=== PATIENT | female | born 1985 | race Caucasian/White ===

== ENCOUNTER 2017-12-08 08:56 | Inpatient (IN) | payer OTHER ==
--- NOTE | 2017-12-08 10:16 | HP ---
General Information - General Information Maternal Age: 32 Grav: 3 Para: 0 SAB: 2 IEA: 0 Estimated Due Date: 12/09/17 Gestational Age in Weeks and Days: 39 Weeks and 6 Days Maternal Blood Type and Rh: A Positive - Results this Serology/RPR Result: Non-Reactive Rubella Result: Immune HBsAg Result: Negative HIV Result: Negative GBS Culture Result: Negative Past Medical History Delivery History: See Records Delivery History Comment: Hx of a spontaneous misscarriage at 8wks (blighted ovum) and a spontaneous misscarriage at 5wks EGA. 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 Scoliosis Endometriosis Pertinent Past Surgical History: See Records Past Surgical History Comment: 2002 Oral surgery Laparoscopy and hysteroscopy Tonsils/Adenoids 1992 Pertinent Family History: See Records Family History Comment: Chron's disease CVD Osteoporosis Lung cancer Unknown clotting disorder - Antepartal Records Antepartal Records: Reviewed, Complicated by: - Patient on anticoagulation Review of Systems Constitutional: Uncomfortable CV Complaint: No Respiratory: Shortness of Breath: No Gastrointestinal: No Nausea/Vomiting, Normal Bowel Movement Genitourinary: No Dysuria, No Bleeding, No Leaking Fluid Musculoskeletal: No Complaint Neurological: No Headache Movement: Normal Exam Allergies/Adverse Reactions: Allergies No Known Allergies Allergy (Verified 12/08/17 09:45) Vital Signs 12/08/17 09:05 Temperature 98.7 F Pulse Rate 92 Respiratory 18 Rate Blood Pressure 104/68 (mmHg) O2 Sat by Pulse 100 Oximetry - Measurements Height: 5 ft 4 in Weight: 127 lb Weight in lbs: 127 Body Mass Index (BMI): 21.8 Pre- Weight: 108 lb Weight Gained This : 19 lbs and 0 ozs - Exam Abdomen: No Upper Quadrant Pain Breast: Breast Exam Deferred CVA: No CVA Tenderness Extremities: No Edema Heart: Normal Rhythm/Heart Sounds HEENT: No Significant Findings Lungs: Clear Bilaterally Rectal: Rectal Exam Deferred Reflexes: DTR 2+ Thyroid: No Thyromegaly - Cervical Exam %cm dilated, 90% effaced, +1 station Cephalic - Abdominal Exam Abdomen Exam: Non-Tender Abdomen Exam Comment: Fundal height less than dates. - Membranes Membrane Status: Intact - Ultrasound/Biophysical Profile Ultrasound Status: Not Done Biophysical Profile: Normal Reactive NST EFM Findings - External Monitor Findings Baseline Heart Rate: 140 External Monitor Findings: Accelerations Present Contractions: Regular, Strong, 45-90 Seconds Assessment/Plan - Reason for Visit Reason for Visit: 39 6/7 weeks in Labor - Plan Plan: Observe, Active Labor - Date/Time of Admission Date of Admission: 12/09/17 Time of Admission: 10:00
[2017-12-08 11:25] LABS: ABS Basophils 0 10^3/ul (0-0.2); ABS Eosinophils 0 10^3/ul (0-0.6); ABS Monocytes 0.6 10^3/ul (0-0.8); ABS Neutrophils 8.6 10^3/ul (1.5-7.7); ABS Nucleated RBC 0 10^3/ul; Eosinophil % 0.2 % (0-6); Hematocrit 37 % (35-47); Hemoglobin 12.9 g/dl (12.0-16.0); Lymphocyte % 17.9 % (25-47); Mean Corpuscular HGB Conc 35 g/dl (31-36); Mean Corpuscular Hemoglobin 34 pg (27-31); Mean Corpuscular Volume 97 fL (80-97); Nucleated Red Blood Cells % 0; Platelet Count 142 10^3/ul (150-450); Red Blood Count 3.78 10^6/ul (4.0-5.4); Red Cell Distribution Width 13 % (10.5-15); White Blood Count 11.3 10^3/ul (3.5-10.8)
[2017-12-09] MEDS ORDERED: Carboprost Tromethamine* 250 MCG INJ ONE (03:25)
[2017-12-09] MEDS ORDERED: Glycerin ADULT SUPP PR PRN (03:45)
[2017-12-09] MEDS ORDERED: Acetaminophen TAB* 325 MG PO PRN (03:45)
[2017-12-09] MEDS ORDERED: Misoprostol TAB* 200 MCG PR ONE (03:45)
[2017-12-09] MEDS ORDERED: OXYTOCIN* 10 UNITS/ML 1 ML VIAL IM ONE (03:45)
[2017-12-09] MEDS ORDERED: Carboprost Tromethamine* 250 MCG INJ IM ONE (03:45)
[2017-12-09] MEDS ORDERED: Ammonia Inhalant* 1 EA AMP ONE (08:12)
[2017-12-09] MEDS ORDERED: Simethicone TAB* 80 MG TAB.CHEW PO SCH (08:30)
[2017-12-09] MEDS: Dibucaine 1% 28.35 GM TUBE PR PRN (10:11)
[2017-12-09] MEDS: Witch Hazel PAD* JAR TOPICAL PRN (10:11)
[2017-12-09] MEDS: Docusate CAP* 100 MG PO SCH ×3 (10:11→21:00)
[2017-12-09 12:03] LABS: Hematocrit 30 % (35-47); Hemoglobin 10.3 g/dl (12.0-16.0); Mean Corpuscular HGB Conc 35 g/dl (31-36); Mean Corpuscular Hemoglobin 34 pg (27-31); Mean Corpuscular Volume 98 fL (80-97); Mean Platelet Volume 9.3 um3 (7.4-10.4); Platelet Count 149 10^3/ul (150-450); Red Blood Count 3.06 10^6/ul (4.0-5.4); Red Cell Distribution Width 13 % (10.5-15); White Blood Count 18.6 10^3/ul (3.5-10.8)
[2017-12-09] MEDS: Enoxaparin(*) 40 MG/0.4 ML SYR SUBCUT SCH (15:22)
[2017-12-09] MEDS: Ibuprofen TAB* 600 MG PO PRN (19:01)
[2017-12-10] MEDS: Ibuprofen TAB* 600 MG PO PRN ×3 (05:45→20:01)
[2017-12-10 06:45] LABS: ABS Basophils 0.1 10^3/ul (0-0.2); ABS Eosinophils 0 10^3/ul (0-0.6); ABS Lymphocytes 3.4 10^3/ul (1.0-4.8); ABS Monocytes 0.7 10^3/ul (0-0.8); ABS Neutrophils 9.5 10^3/ul (1.5-7.7); ABS Nucleated RBC 0 10^3/ul; Eosinophil % 0.3 % (0-6); Hematocrit 25 % (35-47); Hemoglobin 8.7 g/dl (12.0-16.0); Lymphocyte % 24.7 % (25-47); Mean Corpuscular HGB Conc 34 g/dl (31-36); Mean Corpuscular Hemoglobin 34 pg (27-31); Mean Corpuscular Volume 98 fL (80-97); Mean Platelet Volume 9.8 um3 (7.4-10.4); Nucleated Red Blood Cells % 0; Platelet Count 138 10^3/ul (150-450); Red Blood Count 2.57 10^6/ul (4.0-5.4); Red Cell Distribution Width 13 % (10.5-15); White Blood Count 13.7 10^3/ul (3.5-10.8)
[2017-12-10] MEDS: Ferrous Gluconate TAB* 324 MG TAB PO SCH ×2 (08:59→20:01)
[2017-12-10] MEDS: Docusate CAP* 100 MG PO SCH ×3 (08:59→20:01)
[2017-12-10] MEDS: Enoxaparin(*) 40 MG/0.4 ML SYR SUBCUT SCH (15:35)
[2017-12-11] MEDS: Witch Hazel PAD* JAR TOPICAL PRN (04:37)
[2017-12-11] MEDS: Dibucaine 1% 28.35 GM TUBE PR PRN (04:37)
[2017-12-11] MEDS: Ibuprofen TAB* 600 MG PO PRN ×2 (04:37→10:23)
[2017-12-11 06:28] LABS: EGFR Non-African American 163.6 (>60)
[2017-12-11 07:55] VITALS: BP 101/57
[2017-12-11] MEDS: Docusate CAP* 100 MG PO SCH ×2 (08:10→13:43)
[2017-12-11] MEDS: Ferrous Gluconate TAB* 324 MG TAB PO SCH (08:10)
--- NOTE | 2017-12-11 10:50 | PTEDU ---
Patient Name: LAKESHA SCHWARTZ LAKESHA SCHWARTZ selected video: BBOB: Nurturing Your Gorgeous &Growing Baby by to vi ew on 12/11/2017 at 10:50:27 AM from [id number]
--- NOTE | 2017-12-11 11:36 | PTEDU ---
Patient Name: LAKESHA SCHWARTZ LAKESHA SCHWARTZ selected video: Follow Me Mum: [employer] Successful to view on 03/2018 at 11:35:59 AM from [id number]
== END 2017-12-11 14:35 | disposition home or self-care (01) | DRG 774 ==
LOC: MCHOBOUT 08:56 → MCHOB 09:43
PROVIDERS: ADMIT Obstetrics & Gynecology; ATTEND Obstetrics & Gynecology
PROC: 10E0XZZ Delivery of Products of Conception, External Approach (ICD-10-PCS; principal; 2017-12-09)
PROC: 10907ZC Drainage of Amniotic Fluid, Therapeutic from Products of Conception, Via Natural or Artificial Opening (ICD-10-PCS; 2017-12-09)
PROC: 0W8NXZZ Division of Female Perineum, External Approach (ICD-10-PCS; 2017-12-09)
DX: O67.0 Intrapartum hemorrhage with coagulation defect (principal); D68.51 Activated protein C resistance; O90.81 Anemia of the puerperium; D64.9 Anemia, unspecified; Z3A.40 40 weeks gestation of pregnancy; Z37.0 Single live birth
CPT/HCPCS: 36415; 82565; 84520; 85025; 85027; 86850; 86900; 86901; A9270-GY; J1650; J2590